=== PATIENT | male | born 2000 | race Caucasian/White ===

== ENCOUNTER 2022-06-25 14:43 | Emergency (ER) | payer OTHER, SELFPAY ==
[2022-06-25 14:58] VITALS: BP 153/82; PULSE 75; RESP 18; TEMP 36.3; O2SAT 99
--- NOTE | 2022-06-25 14:59 | ED.URI ---
HPI - URI/Sore Throat General Chief Complaint: Upper Respiratory Infection Stated Complaint: Cough,Bilateral Ear Irritation,Congestion Time Seen by Provider: 06/25/22 14:50 Source: patient Mode of arrival: ambulatory Limitations: no limitations History of Present Illness HPI Narrative: Edison is a 21-year-old male patient presenting to the clinic today with complaints of cough, bilateral ear pain, and congestion since Monday. He he developed fever on Monday. Had a virtual visit with his family provider and they ordered him amoxicillin for a possible ear infection. He reports that he is not really feeling any better at this point MD elicited complaint: sore throat and nasal congestion Related Data Home Medications Medication Instructions Recorded Confirmed amoxicillin 875 mg tablet 875 mg PO BID 06/25/22 06/25/22 Allergies Allergy/AdvReac Type Severity Reaction Status Date / Time No Known Allergies Allergy Verified 06/25/22 15:07 Review of Systems Review of Systems: Pertinent positives per HPI. Patient denies any fever, chills, rash, headache, visual changes, dizziness, cough, shortness of breath, chest pain, palpitations, nausea, vomiting, diarrhea, constipation, abdominal pain, or any urinary issues. PMFSH Comments At the time of my signature, I reviewed and agree with the nursing past medical, surgical, social, and family history. There is no relevant family history pertinent to the patient complaint. Exam Narrative: General: Well-developed, well nourished, in no apparent distress Head: Normocephalic, atraumatic Eyes: Pupils equally round and reactive to light bilaterally, EOM intact, sclera and conjunctive clear, no discharge, lids normal Ears: TMs intact, dull, bulging, ear canals clear, no drainage, grossly hearing normal. Nose: Nares patent, clear nares discharge, no inflammation, no sinus tenderness. Mouth: Oral pharynx without lesions or masses, good dentition, MMM. Postnasal drip, oropharynx red Neck: Supple, trachea midline, no enlargement of anterior or posterior cervical nodes, no thyroid masses or goiter palpable. Cardio: Regular rate and rhythm, s1 and s2 normal, no murmur appreciated. Resp: Clear to auscultation bilaterally, no rhonchi, rales, wheezing or rubs Course Course Emergency Course: Portions of this record may have been created with voice recognition software. Level of Care: Express Care Visit Vital Signs Vital signs: Vital Signs Temperature 36.3 C L 06/25/22 14:58 Pulse Rate 75 06/25/22 14:58 Respiratory Rate 18 06/25/22 14:58 Blood Pressure 153/82 H 06/25/22 14:58 Pulse Oximetry 99 06/25/22 14:58 Oxygen Delivery Room Air 06/25/22 14:58 Temperature 36.3 C L 06/25/22 14:58 Pulse Rate 75 06/25/22 14:58 Respiratory Rate 18 06/25/22 14:58 Blood Pressure 153/82 H 06/25/22 14:58 Pulse Oximetry 99 06/25/22 14:58 Oxygen Delivery Room Air 06/25/22 14:58 Vital signs reviewed MDM - URI/Sore Throat MDM Narrative Medical decision making narrative: At the time of visit patient is resting comfortably on the exam table. I suspect patient has viral syndrome/upper respiratory infection/eustachian tube dysfunction. Supportive measures were discussed with the patient he voiced understanding of discharge instructions agrees to treatment plan. Prescription for prednisone was sent to pharmacy. Differential Diagnosis Differential diagnosis: Likely upper respiratory infection, otitis media, sinusitis, viral infection, bronchitis, influenza, pharyngitis and other (COVID, eustachian tube dysfunction) Discharge Plan Discharge Clinical Impression: Acute viral syndrome Upper respiratory infection Qualifiers: URI type: unspecified URI Qualified Code(s): J06.9 - Acute upper respiratory infection, unspecified Eustachian tube dysfunction Qualifiers: Laterality: bilateral Qualified Code(s): H69.83 - Other specified disorders of Eustachian tube, luis eduardo
== END 2022-06-25 15:15 | disposition home or self-care (01) ==
PROVIDERS: Emergency Provider Nurse Practitioner Family; PCP Pediatrics
DX: B34.9 Viral infection, unspecified (principal); J06.9 Acute upper respiratory infection, unspecified; H69.83 Other specified disorders of Eustachian tube, bilateral
CPT/HCPCS: 99213; G0463